=== PATIENT | male | born 1965 | race Caucasian/White ===

== ENCOUNTER → 2016-11-28 | Outpatient (CLI) | payer OTHER ==
[2016-11-28 13:57] LABS: BUN/CREATININE RATIO 13 (0-10)
== END ==
LOC: LAB 12:24
PROVIDERS: Family Medicine
DX: E10.9 Type 1 diabetes mellitus without complications (principal); E78.5 Hyperlipidemia, unspecified; R39.12 Poor urinary stream
CPT/HCPCS: 36415; 80048; 80061; 80076; 82043; 83036; 84153